=== PATIENT | female | born 1980 | race Asian ===

== ENCOUNTER 2021-01-17 02:27 | Emergency (ER) | payer OTHER ==
[~2021-01-17] VITALS: Ht 154.9 cm; Wt 70.3 kg
[2021-01-17 02:38] VITALS: BP 171/97
--- NOTE | 2021-01-17 02:38 | NUR ---
TO BED AMBULATORY
--- NOTE | 2021-01-17 02:49 | NUR ---
PATIENT BIB SELF FOR C/O LEFT ANKLE PAIN AND SWELLING S/P TC ON Wednesday01/12/21. A&O X 4. PER PATIENT SHE HAS NOT TAKEN ANY MEDICATIONS TO CONTROL PAIN TODAY. PER PATIENT "I TRY TO ELEVATE MY LEG AT HOME AND WEAR AN ANKLE BRACE." LEFT FOOT AND ANKLE NOTED WITH BRUISING, PITTING EDEMA +2, CAP REFILL <3 SECONDS, SKIN IS DRY AND WARM TO TOUCH. PATIENT IS AMBULATORY. PATIENT DENIES ANY OTHER INJURIES POST TC. MED HX: DENIES ALLERGIES: TRUPTIA
--- NOTE | 2021-01-17 03:19 | NUR ---
ERMD AT BEDSIDE EVALUATING PATIENT.
--- NOTE | 2021-01-17 03:47 | NUR ---
XRAY AT BEDSIDE.
--- NOTE | 2021-01-17 03:56 | NUR ---
ERMD AT BEDSIDE.
--- NOTE | 2021-01-17 04:02 | NUR ---
POSTERIOR SHORT LEG SPLINT PLACED ON PT L ANKLE, WRAPPED WITH DAMIEN WRAP. +CSM
--- NOTE | 2021-01-17 04:02 | NUR ---
EMT AT BEDSIDE ASSESSING PATIENT FOR USE OF CRUTCHES ORDERED BY ERMEnder.
--- NOTE | 2021-01-17 04:37 | NUR ---
PATIENT AMBULATED TO RESTROOM VIA CRUTCHES.
[2021-01-17 04:40] VITALS: BP 171/97
--- NOTE | 2021-01-17 04:40 | NUR ---
Patient discharged with v/s stable. Written and verbal after care instructions given and explained. Patient verbalized understanding. Ambulatory with CRUTCHES AND steady gait. All questions addressed prior to discharge. Advised to follow up with PMD.
== END 2021-01-17 04:40 | disposition home or self-care (01) ==
LOC: MED 02:27
DX: S82.492A Other fracture of shaft of left fibula, initial encounter for closed fracture (principal); V49.9XXA Car occupant (driver) (passenger) injured in unspecified traffic accident, initial encounter; Y93.89 Activity, other specified; Y92.89 Other specified places as the place of occurrence of the external cause; Y99.8 Other external cause status
CPT/HCPCS: 29515; 73610; 99283

== ENCOUNTER 2021-01-22 02:30 | Emergency (ER) | payer OTHER ==
[~2021-01-22] VITALS: Ht 154.9 cm; Wt 68.0 kg
[2021-01-22 02:35] VITALS: BP 138/90
--- NOTE | 2021-01-22 02:35 | NUR ---
TO BED AMBULATORY
--- NOTE | 2021-01-22 02:40 | NUR ---
PATIENT BIB SELF C/O RIGHT FOOT/ANKLE PAIN / WITH NOTED ABRASION X 1 DAY, S/P TC ON 01/12/21. SWELLING WITH 1+ PITTING EDEMA NOTED. CURRENTLY ON CRUTCHES D/T EXISTING LEFT FOOT FRACTURE. A & O X4. PATIENT IS NOT IN DISTRESS AT THIS TIME. PATIENT DENIES CP, SOB, OR COUGH. CIRCULATION WNL, SKIN IS PINK, DRY, WARM TO TOUCH. CAP REFILL <3 SEC. PER PATIENT SHE APPLIED A WARM COMPRESS AT HOME WITH NO RELIEF. BED IS LOCKED AND IN LOWEST POSITION. BED RAIL X 1. ALLERGIES: NKA
--- NOTE | 2021-01-22 03:23 | NUR ---
ERMD AT BEDSIDE EVALUATING PATIENT.
--- NOTE | 2021-01-22 03:23 | NUR ---
Dr. Kaur examining patient.
[2021-01-22] MEDS ORDERED: BACITRACIN OINT 500 UNITS/GM PKT TP ONE (03:39)
[2021-01-22] MEDS ORDERED: cephALEXin 500 MG CAP PO ONE (03:45)
--- NOTE | 2021-01-22 03:52 | NUR ---
POSTERIOR SHORT LEG SPLINT PLACED ON PT L LEG, WRAPPED WITH DAMIEN WRAP. +CSM
--- NOTE | 2021-01-22 03:54 | NUR ---
PT WOUND ON R FOOT IRRIGATED WITH NORMAL SALINE
--- NOTE | 2021-01-22 03:55 | NUR ---
PT WOUND ON R FOOT COVERED WITH BANDAID AFTER BACITRACIN APPLIED.
[2021-01-22] MEDS ORDERED: CEPH500C16 PO (04:13)
[2021-01-22 04:19] VITALS: BP 138/90
== END 2021-01-22 04:19 | disposition home or self-care (01) ==
LOC: MED 02:30
DX: L03.115 Cellulitis of right lower limb (principal); Z79.899 Other long term (current) drug therapy
CPT/HCPCS: 29515; 99283

== ENCOUNTER 2021-02-23 02:26 | Emergency (ER) | payer OTHER ==
[~2021-02-23] VITALS: Ht 154.9 cm; Wt 72.6 kg
[~2021-02-23 02:26] MED LIST: CEPH500C16 PO
[2021-02-23 02:33] VITALS: BP 160/90
--- NOTE | 2021-02-23 02:33 | NUR ---
TO BED AMBULATORY
--- NOTE | 2021-02-23 02:49 | NUR ---
Dr. Myers examining patient.
--- NOTE | 2021-02-23 02:49 | NUR ---
40 Y/O FEMALE C/O R FOOT PAIN X2 DAYS. SWELLING NOTED. ABLE TO MOVE EXTREMITIES. DENIES ANY RECENT TRAUMA. MEDHX: L FOOT FRACTURE NKA
[2021-02-23 03:00] VITALS: BP 160/90
--- NOTE | 2021-02-23 03:00 | NUR ---
Patient discharged with v/s stable. Written and verbal after care instructions given and explained. Patient verbalized understanding. Ambulatory with steady gait. All questions addressed prior to discharge. Advised to follow up with PMD.
== END 2021-02-23 03:00 | disposition home or self-care (01) ==
LOC: MED 02:26
DX: M79.89 Other specified soft tissue disorders (principal); F17.200 Nicotine dependence, unspecified, uncomplicated; Z79.899 Other long term (current) drug therapy
CPT/HCPCS: 99281

== ENCOUNTER 2021-03-29 05:01 | Emergency (ER) | payer OTHER ==
[~2021-03-29] VITALS: Ht 154.9 cm; Wt 74.8 kg
[2021-03-29 05:10] VITALS: BP 134/72
--- NOTE | 2021-03-29 05:16 | NUR ---
ERMD AT BEDSIDE FOR MEDICAL EVALUATION.
--- NOTE | 2021-03-29 05:17 | NUR ---
Patient assessment completed per ERMD, no nursing interventions needed at this time.
[2021-03-29] MEDS ORDERED: SULF-58 PO (05:20)
[2021-03-29 05:24] VITALS: BP 134/72
--- NOTE | 2021-03-29 05:24 | NUR ---
Patient discharged with v/s stable. Written and verbal after care instructions given and explained by . Patient alert, oriented and verbalized understanding of instructions. Ambulatory with steady gait. All questions addressed prior to discharge by . ID band removed. Patient advised to follow up with PMD. Rx of BACTRIM given. Patient educated on indication of medication including possible reaction and side effects by . Opportunity to ask questions provided and answered.
== END 2021-03-29 05:24 | disposition home or self-care (01) ==
LOC: MED 05:01
DX: L73.9 Follicular disorder, unspecified (principal)
CPT/HCPCS: 99283

== ENCOUNTER 2022-09-26 07:29 | Emergency (ER) | payer OTHER ==
[~2022-09-26] VITALS: Ht 154.9 cm; Wt 78.5 kg
[~2022-09-26 07:29] MED LIST changes: +SULF-58 PO
[2022-09-26 07:40] VITALS: BP 139/97
--- NOTE | 2022-09-26 08:00 | NUR ---
IN TRIAGE FOR WOUND CHECK WITH DR ADAME
--- NOTE | 2022-09-26 08:06 | NUR ---
PRESENTS TO ED FOR WOUND CHECK, PER PT SHE WAS SEEN IN [facility] (AUG 04) 1 MONTH FOR WOUND IN LEFT LOWER LEG.PER PT SHE WAS CUT WITH TOOLBOX. NO PUS NOTED ON OPEN WOUND. DENIES ANY FEVERS, CHILLS. LAST TDAP 2020 NKA PMH: DENIES
== END 2022-09-26 08:15 | disposition home or self-care (01) ==
LOC: MED 07:29
DX: S81.812D Laceration without foreign body, left lower leg, subsequent encounter (principal); Z48.00 Encounter for change or removal of nonsurgical wound dressing; X58.XXXD Exposure to other specified factors, subsequent encounter
CPT/HCPCS: 99281